=== PATIENT | male | born 1950 | race Caucasian/White ===

== ENCOUNTER 2018-04-12 13:40 | Outpatient (REF) | payer MEDICARE, SELFPAY ==
[2018-04-12 21:43] LABS: Uric Acid 7.9 mg/dL (3.5-7.2)
== END 2018-04-12 14:00 ==
LOC: NCHCN 13:40
PROVIDERS: PCP Nurse Practitioner Family; Visit Provider Specialist/Technologist Athletic Trainer
DX: M79.676 Pain in unspecified toe(s) (principal)
CPT/HCPCS: 84550

== ENCOUNTER 2018-09-09 11:48 | Outpatient (REF) | payer MEDICARE, SELFPAY ==
[2018-09-09 21:31] LABS: ALT 27 U/L (12-78); AST 19 U/L (15-37); Albumin 4.3 g/dL (3.4-5.0); Alkaline Phosphatase 40 U/L (46-116); Anion Gap 8.5 mmol/L (3-11); BUN 23 mg/dL (7-18); Bilirubin, Total 0.7 mg/dL (0.2-1.0); CO2 29.5 mmol/L (21.0-32.0); CREATININE 1.47 mg/dL (0.70-1.30); Calcium 9.2 mg/dL (8.5-10.1); Chloride 102 mmol/L (98-107); Glucose 91 mg/dL (70-100); Potassium 5.3 mmol/L (3.5-5.1); Sodium 140 mmol/L (136-145); Total Protein 7.7 g/dL (6.4-8.2)
== END 2018-09-09 12:08 ==
LOC: NCHCN 11:48
PROVIDERS: PCP Family Medicine; Visit Provider Family Medicine
DX: I10 Essential (primary) hypertension (principal); E78.5 Hyperlipidemia, unspecified
CPT/HCPCS: 80053

== ENCOUNTER 2019-09-15 11:44 | Outpatient (REF) | payer MEDICARE, SELFPAY ==
[2019-09-15 19:19] LABS: ALT 22 U/L (16-63); AST 16 U/L (15-37); Albumin 4.2 g/dL (3.4-5.0); Alkaline Phosphatase 52 U/L (46-116); Anion Gap 6.3 mmol/L (3-11); BUN 25 mg/dL (7-18); Bilirubin, Total 0.5 mg/dL (0.2-1.0); CO2 29.7 mmol/L (21.0-32.0); CREATININE 1.37 mg/dL (0.70-1.30); Calcium 9.6 mg/dL (8.5-10.1); Chloride 101 mmol/L (98-107); Estimated GFR 51.37 (mL/min/1.73m2); Glucose 91 mg/dL (74-106); Potassium 5.2 mmol/L (3.5-5.1); Sodium 137 mmol/L (136-145); Total Protein 7.8 g/dL (6.4-8.2)
== END 2019-09-15 12:04 ==
LOC: NCHCN 11:44
PROVIDERS: PCP Family Medicine; Visit Provider Family Medicine
DX: N18.9 Chronic kidney disease, unspecified; I10 Essential (primary) hypertension
CPT/HCPCS: 80053

== ENCOUNTER 2019-12-21 13:06 | Outpatient (REF) | payer MEDICARE, SELFPAY ==
--- NOTE | 2019-12-21 09:59 | SKI_PTH ---
PATIENT: Abraham Mcneil LOC: N U#:[id number] AGE/SX: 69/M ROOM: RE12/21/[address]: Jovany Ware DO : 1950 BED: DIS: 12/21/2019 SPEC #: [id number] RECD: 12/21/19 13:15 STATUS: MIL REGabe #: [id number] ESTELA: 12/21/19 09:[address]: Jovany Ware DEPT: Surgical Specimen RECD BY: Yumiko Curtis ENTERED: 12/21/19 13:15 SP TYPE: SKI OTHR DR: Kasia Ayon V Tissues: 1 - SKIN BIOPSY(SHAVE/PUNCH) 2 - SKIN BIOPSY(SHAVE/PUNCH) Procedures: SKIN LEVEL 4 Comments: [id number]
== END 2019-12-21 13:26 ==
LOC: LBN 13:06
PROVIDERS: PCP Family Medicine; Visit Provider Otolaryngology Otolaryngology/Facial Plastic Surgery
DX: C44.519 Basal cell carcinoma of skin of other part of trunk (principal)
CPT/HCPCS: 88305

== ENCOUNTER 2020-01-16 09:41 | Outpatient (REF) | payer MEDICARE, SELFPAY ==
--- NOTE | 2020-01-16 08:51 | SKI_PTH ---
PATIENT: Abraham Mcneil LOC: [facility] U#:[id number] AGE/SX: 69/M ROOM: RE01/16/[address]: Jovany Ware DO : 1950 BED: DIS: 01/16/2020 SPEC #: [id number] RECD: 01/16/20 16:22 STATUS: MIL REQ #: [id number] ESTELA: 01/16/20 08:[address]: Jovany Ware DEPT: Surgical Specimen RECD BY: Yumiko Curtis ENTERED: 01/16/20 16:22 SP TYPE: SKI OTHR DR: Kasia Ayon V Tissues: 1 - SKIN BIOPSY(SHAVE/PUNCH) Procedures: SKIN LEVEL 4 Comments: [id number]
== END 2020-01-16 10:01 ==
LOC: LBN 09:41
PROVIDERS: PCP Family Medicine; Visit Provider Otolaryngology Otolaryngology/Facial Plastic Surgery
DX: C44.612 Basal cell carcinoma of skin of right upper limb, including shoulder (principal)
CPT/HCPCS: 88305

== ENCOUNTER 2020-10-18 16:27 | Outpatient (REF) | payer MEDICARE, SELFPAY ==
[2020-10-18 16:32] LABS: Anion Gap 8.6 mmol/L (3-11); BUN 24 mg/dL (7-18); CO2 29.4 mmol/L (21.0-32.0); CREATININE 1.4 mg/dL (0.70-1.30); Calcium 8.9 mg/dL (8.5-10.1); Chloride 102 mmol/L (98-107); Estimated GFR 49.96 (mL/min/1.73m2); Glucose 88 mg/dL (74-106); Potassium 4.5 mmol/L (3.5-5.1); Sodium 140 mmol/L (136-145)
[2020-10-18 21:52] LABS: PSA, Screening 4.3 ng/mL (0.0-6.5)
== END 2020-10-18 16:28 | disposition home or self-care (01) ==
LOC: NCHCN 16:27
PROVIDERS: PCP Family Medicine; Visit Provider Family Medicine
DX: N18.9 Chronic kidney disease, unspecified (principal); I10 Essential (primary) hypertension
CPT/HCPCS: 80048; 84153

== ENCOUNTER 2021-10-22 15:09 | Outpatient (REF) | payer MEDICARE, SELFPAY ==
[2021-10-22 20:17] LABS: ALT 25 U/L (16-63); AST 17 U/L (15-37); Albumin 4.4 g/dL (3.4-5.0); Alkaline Phosphatase 52 U/L (46-116); Anion Gap 9.9 mmol/L (3-11); BUN 26 mg/dL (7-18); Bilirubin, Total 0.4 mg/dL (0.2-1.0); CO2 28.1 mmol/L (21.0-32.0); CREATININE 1.5 mg/dL (0.70-1.30); Calcium 9.6 mg/dL (8.5-10.1); Calculated LDL 192 mg/dL (<100); Chloride 103 mmol/L (98-107); Cholesterol 266 mg/dL (<200); Glucose 82 mg/dL (74-106); HDL Cholesterol 36 mg/dL (40-60); Potassium 4.6 mmol/L (3.5-5.1); Sodium 141 mmol/L (136-145); Triglyceride 192 mg/dL (<150)
== END 2021-10-22 15:10 | disposition home or self-care (01) ==
LOC: NCHCN 15:09
PROVIDERS: PCP Family Medicine; Visit Provider Family Medicine
DX: N18.9 Chronic kidney disease, unspecified (principal)
CPT/HCPCS: 80053; 80061

== ENCOUNTER 2022-10-24 15:04 | Outpatient (REF) | payer MEDICARE, SELFPAY ==
[2022-10-24 15:57] LABS: ALT 25 U/L (16-63); AST 17 U/L (15-37); Albumin 4.3 g/dL (3.4-5.0); Alkaline Phosphatase 61 U/L (46-116); Anion Gap 8.1 mmol/L (3-11); BUN 29 mg/dL (7-18); Bilirubin, Total 0.5 mg/dL (0.2-1.0); CO2 29.9 mmol/L (21.0-32.0); CREATININE 1.6 mg/dL (0.70-1.30); Calcium 9.7 mg/dL (8.5-10.1); Calculated LDL 200 mg/dL (<100); Chloride 102 mmol/L (98-107); Cholesterol 270 mg/dL (<200); Estimated GFR 45.21 (mL/min/1.73m2); Glucose 101 mg/dL (74-106); HDL Cholesterol 40 mg/dL (40-60); Potassium 5.8 mmol/L (3.5-5.1); Sodium 140 mmol/L (136-145); Total Protein 8.1 g/dL (6.4-8.2); Triglyceride 150 mg/dL (<150)
[2022-10-24 23:19] LABS: PSA, Screening 5.3 ng/mL (<=6.5)
== END 2022-10-24 15:05 | disposition home or self-care (01) ==
LOC: NCHCN 15:04
PROVIDERS: PCP Family Medicine; Visit Provider Family Medicine
DX: E78.5 Hyperlipidemia, unspecified (principal); I10 Essential (primary) hypertension; Z12.5 Encounter for screening for malignant neoplasm of prostate
CPT/HCPCS: 80053; 80061; 84153

== ENCOUNTER 2023-10-29 10:11 | Outpatient (REF) | payer MEDICARE, SELFPAY ==
[2023-10-29 15:36] LABS: ALT 25 U/L (16-63); AST 16 U/L (15-37); Alkaline Phosphatase 54 U/L (46-116); Anion Gap 6.4 mmol/L (3-11); BUN 28 mg/dL (7-18); Bilirubin, Total 0.4 mg/dL (0.2-1.0); CO2 29.6 mmol/L (21.0-32.0); CREATININE 1.5 mg/dL (0.70-1.30); Calcium 9.3 mg/dL (8.5-10.1); Chloride 105 mmol/L (98-107); Estimated GFR 48.55 (mL/min/1.73m2); Glucose 99 mg/dL (74-106); Sodium 141 mmol/L (136-145); Total Protein 7.7 g/dL (6.4-8.2)
[2023-10-29 15:55] LABS: Calculated LDL 175 mg/dL (<100); Cholesterol 240 mg/dL (<200); HDL Cholesterol 39 mg/dL (40-60); Triglyceride 132 mg/dL (<150)
[2023-10-29 21:29] LABS: PSA, Screening 5.8 ng/mL (<=6.5)
== END 2023-10-29 10:12 | disposition home or self-care (01) ==
LOC: NCHCN 10:11
PROVIDERS: PCP Family Medicine; Visit Provider Family Medicine
DX: Z00.00 Encounter for general adult medical examination without abnormal findings (principal); Z12.5 Encounter for screening for malignant neoplasm of prostate
CPT/HCPCS: 80053; 80061; 84153

== ENCOUNTER 2024-05-03 12:59 | Outpatient (REF) | payer MEDICARE, SELFPAY ==
[2024-05-03 18:23] LABS: C Diff PCR Positive (Negative)
[2024-05-05 11:05] LABS: Campylobacter PCR Negative (Negative); Salmonella PCR Negative (Negative); Shiga Toxin PCR Negative (Negative); Shigella/Enteroinvasive Ecoli Negative (Negative)
== END 2024-05-03 13:00 | disposition home or self-care (01) ==
LOC: NCHCN 12:59
PROVIDERS: PCP Family Medicine; Visit Provider Nurse Practitioner Family
DX: R19.7 Diarrhea, unspecified (principal)
CPT/HCPCS: 87493; 87505; 87177

== ENCOUNTER 2024-06-07 17:11 | Outpatient (REF) | payer MEDICARE, SELFPAY ==
[2024-06-07 17:24] LABS: Anion Gap 8.7 mmol/L (3-11); BUN 20 mg/dL (7-18); CO2 28.3 mmol/L (21.0-32.0); CREATININE 1.4 mg/dL (0.70-1.30); Calcium 9.5 mg/dL (8.5-10.1); Chloride 106 mmol/L (98-107); Estimated GFR 52.41 (mL/min/1.73m2); Glucose 99 mg/dL (74-106); Potassium 4.6 mmol/L (3.5-5.1); Sodium 143 mmol/L (136-145); Uric Acid 7.3 mg/dL (3.5-7.2)
[2024-06-08 13:14] LABS: C Diff PCR Negative (Negative)
== END 2024-06-07 17:12 | disposition home or self-care (01) ==
LOC: NCHCN 17:11
PROVIDERS: Nurse Practitioner Family; PCP Family Medicine; Visit Provider Family Medicine
DX: R19.7 Diarrhea, unspecified (principal); M10.9 Gout, unspecified
CPT/HCPCS: 80048; 87493; 87505; 84550